=== PATIENT | female | born 1990 | race Caucasian/White ===

== ENCOUNTER 2025-07-28 09:45 | Outpatient (CLI) | payer OTHER, SELFPAY ==
--- NOTE | ~2025-07-28 | XR_ITS ---
XR abdomen/kub 1V 07/28/2025 10:07 INDICATION: Evaluate IUD TECHNIQUE: KUB COMPARISON: None FINDINGS: Bowel gas pattern is normal. Moderate colonic fecal loading. There is an IUD present in the pelvis. There is no evidence of free air, mass, organomegaly, ascites or obstruction. No abnormal calculi are seen. The bones appear intact. IMPRESSION: 1: IUD identified in the pelvis. Reviewed, dictated and finalized at location O. [employer]
== END 2025-07-28 09:46 | disposition home or self-care (01) ==
PROVIDERS: PCP Family Medicine; Visit Provider Obstetrics & Gynecology
DX: T83.32XA Displacement of intrauterine contraceptive device, initial encounter (principal)
CPT/HCPCS: 74018